=== PATIENT | female | born 1955 ===

== ENCOUNTER 2017-02-19 14:04 | Emergency (ER) | payer OTHER, SELFPAY ==
[2017-02-19 14:04] VITALS: BMI 33.6
[2017-02-19 14:12] VITALS: BP 140/90; PULSE 69; RESP 16; TEMP 98; O2SAT 98
[2017-02-19] MEDS ORDERED: Sodium Chloride 0.9% 1,000 ML IV STA (14:55)
--- NOTE | 2017-02-19 14:58 | ED PDOC ---
HPI: Headache Time Seen by Provider: 02/19/17 14:15 Chief Complaint (Nursing): Headache Chief Complaint (Provider): Headache/dizzy History Per: Patient Additional Complaint(s): 61 yo female, no PMH, presents to ED with complaints of headache, dizziness and change in vision x 4 days. Pt admits to sinus pain and pressure as well. No fever or chills. No nausea or vomiting. Past Medical History Reviewed: Nursing Documentation, Vital Signs Vital Signs: Last Vital Signs Temp 98.0 F 02/19/17 14:11 Pulse 69 02/19/17 14:11 Resp 16 02/19/17 14:11 BP 140/90 02/19/17 14:11 Pulse Ox 98 02/19/17 14:11 - Medical History PMH: No Chronic Diseases - Surgical History Surgical History: No Surg Hx - Family History Family History: States: Unknown Family Hx - Living Arrangements Living Arrangements: With Family - Social History Current smoker - smoking cessation education provided: No Alcohol: Social Drugs: Denies - Home Medications Home Medications: Ambulatory Orders Medication Instructions Recorded Naproxen 500 mg PO BID #14 tab 08/06/14 Albuterol 0.083% [Albuterol 3 ml IH Q8 PRN #100 neb 02/24/16 Sulfate 3 Ml] Docusate [Colace] 1 tab PO BID #20 cap 02/24/16 Mask, Face [Nebulizer Aerosol Mask 1 dev XX PRN PRN #1 dev 02/24/16 Adult] Nebulizer [Aeroeclipse II] 1 each MC Q8 PRN #1 each 02/24/16 Promethazine/Codeine 5 ml PO Q12 PRN #100 ml 02/24/16 [Codeine/Promethazine 10 MG/5 Ml-6.25 MG/5 Ml] predniSONE [Prednisone] 3 tab PO DAILY #12 tab 02/24/16 Methylprednisolone [Medrol Dose 4 mg PO DAILY #21 mg 02/19/17 Pack (21 tabs)] - Allergies Allergies/Adverse Reactions: Allergies Allergy/AdvReac Type Severity Reaction Status Date / Time No Known Allergies Allergy Verified 02/24/16 17:26 Review of Systems ROS Statement: Except As Marked, All Systems Reviewed And Found Negative Physical Exam - Reviewed Nursing Documentation Reviewed: Yes Vital Signs Reviewed: Yes - Physical Exam Appears: Positive for: Well, Non-toxic, No Acute Distress Head Exam: Positive for: ATRAUMATIC, NORMAL INSPECTION, NORMOCEPHALIC Skin: Positive for: Normal Color, Warm, DRY Eye Exam: Positive for: EOMI, Normal appearance, PERRL ENT: Positive for: Normal ENT Inspection Neck: Positive for: Normal, Painless ROM Cardiovascular/Chest: Positive for: Regular Rate, Rhythm Respiratory: Positive for: CNT, Normal Breath Sounds Gastrointestinal/Abdominal: Positive for: Normal Exam, Bowel Sounds, Soft Back: Positive for: Normal Inspection Extremity: Positive for: Normal ROM Neurologic/Psych: Positive for: Alert, Oriented - Laboratory Results Result Diagrams: 02/19/17 15:30 02/19/17 15:30 - ECG O2 Sat by Pulse Oximetry: 98 Medical Decision Making Medical Decision Making: IV access established and treatment initiated with Solumedrol and Toradol Labs resulted and reviewed with pt who demonstrated full understanding CT IMPRESSION: Unremarkable CT scan of the head for hemorrhage or recent infarct. Disposition - Clinical Impression Clinical Impression: Headache, Dizziness - Patient ED Disposition Is Patient to be Admitted: No - Disposition Disposition: Routine/Home Disposition Time: 18:49 Condition: STABLE Prescriptions: Methylprednisolone [Medrol Dose Pack (21 tabs)] 4 mg PO DAILY #21 mg Instructions: Tension Headache (ED), Dizziness (ED) Forms: [employer] (Macedonian), [facility] School/Work Excuse - POA Present On Arrival: None
--- NOTE | 2017-02-19 15:59 | CT ---
PROCEDURE: CT HEAD WITHOUT CONTRAST. HISTORY: headache, dizzy COMPARISON: None available. TECHNIQUE: Axial computed tomography images were obtained through the head/brain without intravenous contrast. Radiation dose: Total exam DLP = 827 mGy-cm. This CT exam was performed using one or more of the following dose reduction techniques: Automated exposure control, adjustment of the mA and/or kV according to patient size, and/or use of iterative reconstruction technique. FINDINGS: HEMORRHAGE: No intracranial hemorrhage. BRAIN: No mass effect or edema. Basal ganglia calcification is noted. No cerebral cortical atrophy is noted. No cortical effacement is noted. Posterior fossa is unremarkable. Retro-orbital regions are unremarkable. VENTRICLES: Unremarkable. No hydrocephalus. CALVARIUM: Unremarkable. PARANASAL SINUSES: Minor mucosal changes are seen in the ethmoid air cell region. MASTOID AIR CELLS: Unremarkable as visualized. No inflammatory changes. OTHER FINDINGS: No appreciable extra-axial fluid collection is noted IMPRESSION: Unremarkable CT scan of the head for hemorrhage or recent infarct.
--- NOTE | 2017-02-19 16:04 | CT ---
PROCEDURE: CT SINUSES WITHOUT CONTRAST HISTORY: pain and pressure COMPARISON: None TECHNIQUE: Contiguous axial CT images of the paranasal sinuses were obtained. Coronal and sagittal reformats were generated. Radiation dose: Total exam DLP = 687 mGy-cm. This CT exam was performed using one or more of the following dose reduction techniques: Automated exposure control, adjustment of the mA and/or kV according to patient size, and/or use of iterative reconstruction technique. FINDINGS: FRONTAL SINUSES: Well developed and clear. ETHMOID SINUSES: Mild mucosal thickening without air-fluid level. SPHENOID SINUSES: Clear. MAXILLARY SINUSES: Mild mucosal thickening is seen inferiorly in the left maxillary sinus. There is also some mild mucosal thickening seen superiorly in the left and right maxillary sinus. No air-fluid level is seen. SINUS DRAINAGE: Mild mucosal thickening is seen in the ostiomeatal complex region, without obstruction. There is also some mild mucosal thickening seen in the frontoethmoid recess region without obstruction. NASAL SEPTUM: No significant deviation. No destructive lesion. MASS: None. SKULL BASE: Unremarkable. TEMPORAL BONES: Middle ears and mastoid grossly unremarkable. OTHER FINDINGS: Retro-orbital regions are unremarkable. Posterior nasopharynx is within normal limits. Tongue base region is limited but appears normal. A number of small scattered lymph nodes are seen in the neck, nonspecific but will require further clinical follow-up. IMPRESSION: No evidence of acute sinusitis. Mild mucosal thickening without air-fluid level. No gross bone destruction in the sinus region. Nonspecific scattered lymph nodes in the upper neck region requiring further clinical follow-up. .
[2017-02-19 16:21] LABS: BASO # 0.1 K/uL (0.0-0.2); BASO % 1.3 % (0.0-2.0); EOS % 1.1 % (0.0-4.0); HEMOGLOBIN 12.9 g/dL (12.0-16.0); LYMPH # 1.7 K/uL (1.0-4.3); LYMPH % 36.7 % (20.0-40.0); MEAN CELL VOLUME 86.8 fl (81.0-99.0); MEAN CORPUSCULAR HEMOGLOBIN 27.5 pg (27.0-31.0); MEAN CORPUSCULAR HGB CONC 31.7 g/dL (33.0-37.0); MONO # 0.3 K/uL (0.0-0.8); MONO % 7.1 % (0.0-10.0); NEUT # 2.5 K/uL (1.8-7.0); NEUT % 53.8 % (50.0-75.0); NRBC % 0.1 % (0.0-0.0); RBC 4.68 Mil/uL (3.80-5.20); RED CELL DISTRIBUTION WIDTH 13.8 % (11.5-14.5); WHITE BLOOD COUNT 4.6 K/uL (4.8-10.8)
[2017-02-19 16:36] LABS: ALB/GLOB RATIO 1.3 (1.0-2.1); ALBUMIN 4.4 g/dL (3.5-5.0); ALT/SGPT 34 U/L (9-52); AST/SGOT 21 U/L (14-36); BLOOD UREA NITROGEN 10 mg/dl (7-17); CALCIUM 9.8 mg/dL (8.4-10.2); GFR AFRICAN-AMERICAN > 60; GFR NON-AFRICAN AMERICAN > 60
--- NOTE | 2017-02-20 11:53 | CARD ---
APPROVED REPORT EKG Measurement Heart [id number] <Conclusion> Sinus bradycardia Cannot rule out Anterior infarct, age undetermined Abnormal ECG
== END 2017-02-19 18:15 | disposition home or self-care (01) ==
LOC: H.ER 14:04
DX: R51 Headache (principal); R42 Dizziness and giddiness
CPT/HCPCS: 70450; 70486; 80053; 84484; 85025; 93005; 96374; 96375; 99284; J1885; J2930; J7040